=== PATIENT | male | born 1960 | race Caucasian/White ===

== ENCOUNTER 2018-01-22 19:33 | Emergency (ER) | payer MEDICAID ==
[~2018-01-22] VITALS: Ht 185.4 cm; Wt 181.4 kg
[2018-01-22] MEDS ORDERED: LIPITOR80 MG GT (19:48)
[2018-01-22] MEDS ORDERED: METOPROLOL SUCC25 MG PO (19:48)
[2018-01-22] MEDS ORDERED: LISINOPRIL10 MG PO (19:49)
[2018-01-22] MEDS ORDERED: CLOPIDOGREL75 MG PO (19:49)
[2018-01-22] MEDS ORDERED: BUPROPION HCL100 MG NG (19:50)
[2018-01-22] MEDS ORDERED: NAPROXEN250 MG PO (19:50)
[2018-01-22] MEDS ORDERED: ASPIRIN81 MG PO (19:51)
--- NOTE | 2018-01-23 21:05 | EKG ---
[facility] [address] [facility] [place] [address] Signed Sinus tachycardia T wave abnormality, consider anterior ischemia Abnormal ECG No previous ECGs available Confirmed by XIAO LAWSON MD ([id number] on 01/23/2018 9:05:13 PM Electronically Signed By: XIAO LAWSON MD 01/23/18 2105 PATIENT NAME: CIARA RASMUSSEN Lulu Electrocardiogram DATE OF : 62 PHYSICIAN: XIAO LAWSON MD REPORT #: [id number] REPORT IS CONFIDENTIAL AND NOT TO BE RELEASED WITHOUT AUTHORIZATION
== END 2018-01-22 22:47 | disposition home or self-care (01) ==
LOC: ED 19:33
DX: R07.9 Chest pain, unspecified (principal); I10 Essential (primary) hypertension; J44.9 Chronic obstructive pulmonary disease, unspecified; F17.200 Nicotine dependence, unspecified, uncomplicated; Z79.899 Other long term (current) drug therapy; Z79.82 Long term (current) use of aspirin
CPT/HCPCS: 71045; 71275; 80053; 83690; 84484; 85025; 93005; 93010; 99284; Q9967